=== PATIENT | male | born 1965 | race Caucasian/White ===

== ENCOUNTER 2022-05-13 05:30 | Day surgery (SDC) | payer BC ==
[~2022-05-13] VITALS: Ht 165.1 cm; Wt 86.2 kg
[2022-05-13] MEDS: MIDAZOLAM HCL 5 MG/5 ML VIAL ONE ×2 (07:20→07:27)
[2022-05-13] MEDS ORDERED: MEPERIDINE 100 MG INJ. 100 MG/ML VIAL ONE (07:21)
[2022-05-13 12:57] VITALS: BP_SYST 136
== END 2022-05-13 08:35 | disposition home or self-care (01) ==
LOC: SDS 05:30 → SMU 05:30 → SDS 08:35
PROVIDERS: ATTEND Internal Medicine Gastroenterology
DX: Z12.11 Encounter for screening for malignant neoplasm of colon (principal); K57.30 Diverticulosis of large intestine without perforation or abscess without bleeding; K64.8 Other hemorrhoids; K21.9 Gastro-esophageal reflux disease without esophagitis; E78.5 Hyperlipidemia, unspecified; Z79.899 Other long term (current) drug therapy; Z20.822 Contact with and (suspected) exposure to COVID-19
CPT/HCPCS: 36415 ×2; 45378; 87426; 82962; 99152; U0003; G0378; J2250; J2175